=== PATIENT | female | born 1970 | race Caucasian/White ===

== ENCOUNTER 2020-10-19 10:09 | Outpatient (CLI) | payer BC, SELFPAY ==
--- NOTE | 2020-10-19 10:14 | MM_ITS ---
WS: [id number] BILATERAL SCREENING DIGITAL MAMMOGRAM WITH CAD HISTORY: SCREENING COMPARISON: 10/19/2016 and 03/31/2010 Bilateral CC and MLO views submitted. Computer aided detection analyzed. Breast composition: There are scattered areas of fibroglandular density. No suspicious masses, microc alcifications or architectural distortion. Benign calcification medial LEFT breast. MM/[place] [id number] IMPRESSION: BI-RADS: 2-Benign FOLLOW UP: 1 Year Follow-up
== END 2020-10-19 10:10 | disposition home or self-care (01) ==
LOC: RADSHAW 10:12
PROVIDERS: PCP Family Medicine; Visit Provider Family Medicine
DX: Z12.31 Encounter for screening mammogram for malignant neoplasm of breast (principal)
CPT/HCPCS: 77067

== ENCOUNTER → 2022-06-13 11:14 | Outpatient (BNVA) | payer OTHER, SELFPAY | PROVIDERS: PCP Family Medicine; Visit Provider Family Medicine | DX: E11.9 Type 2 diabetes mellitus without complications (principal); Z51.81 Encounter for therapeutic drug level monitoring; B35.4 Tinea corporis; I10 Essential (primary) hypertension; R09.81 Nasal congestion; R61 Generalized hyperhidrosis | CPT/HCPCS: 80053; 83036 ==

== ENCOUNTER → 2022-08-17 10:42 | Outpatient (BNVA) | payer OTHER, SELFPAY | PROVIDERS: PCP Family Medicine; Referring Provider Family Medicine; Visit Provider Internal Medicine Rheumatology | DX: Z79.899 Other long term (current) drug therapy (principal); L40.50 Arthropathic psoriasis, unspecified; Z11.59 Encounter for screening for other viral diseases; E11.9 Type 2 diabetes mellitus without complications; M77.32 Calcaneal spur, left foot; M77.31 Calcaneal spur, right foot | CPT/HCPCS: 36415; 73130; 73630; 82306; 85025; 85651; 86140; 86200; 86431; 86480; 86704; 86803; 87340 ==

== ENCOUNTER → 2023-03-07 15:59 | Outpatient (BNVA) | payer OTHER, SELFPAY | PROVIDERS: PCP Family Medicine; Visit Provider Internal Medicine Rheumatology | DX: L40.50 Arthropathic psoriasis, unspecified (principal); Z79.899 Other long term (current) drug therapy | CPT/HCPCS: 36415; 80076; 82565; 85025; 86140 ==

== ENCOUNTER → 2023-04-18 10:42 | Outpatient (BNVA) | payer OTHER, SELFPAY | PROVIDERS: PCP Family Medicine; Visit Provider Family Medicine | DX: E11.9 Type 2 diabetes mellitus without complications (principal); J32.9 Chronic sinusitis, unspecified; H57.89 Other specified disorders of eye and adnexa; Z79.899 Other long term (current) drug therapy; I10 Essential (primary) hypertension | CPT/HCPCS: 83036 ==

== ENCOUNTER → 2023-06-21 11:56 | Outpatient (BNVA) | payer OTHER, SELFPAY | PROVIDERS: PCP Family Medicine; Visit Provider Internal Medicine Rheumatology | DX: Z79.899 Other long term (current) drug therapy (principal); L40.50 Arthropathic psoriasis, unspecified | CPT/HCPCS: 36415; 80076; 82565; 85025; 86140 ==

== ENCOUNTER 2023-10-27 13:26 | Outpatient (CLI) | payer OTHER, SELFPAY ==
--- NOTE | 2023-10-27 13:38 | MM_ITS ---
WS: [id number] BILATERAL 3D TOMOSYNTHESIS DIGITAL SCREENING MAMMOGRAPHY WITH CAD CLINICAL INFORMATION: Z12.39 - Encounter for other screening for malignant neop... HISTORY: Screening mammogram. No current complaints. COMPARISON: 2020 TECHNIQUE: Bilateral CC and MLO views. FINDINGS: Scattered fibroglandular densities bilaterally. No suspicious focal mass, asymmetry, calcifications, or architectural distortion. No evidence of malignancy. Lucent centered calcification LEFT breast. IMPRESSION: MM/[place] [id number] BI-RADS: 2-Benign FOLLOW UP: 1 Year Follow-up Recommend return to annual screening mammography.
== END 2023-10-27 13:27 | disposition home or self-care (01) ==
LOC: RAD 13:27
PROVIDERS: PCP Family Medicine; Visit Provider Family Medicine
DX: Z12.31 Encounter for screening mammogram for malignant neoplasm of breast (principal)
CPT/HCPCS: 77063; 77067

== ENCOUNTER → 2024-01-08 15:47 | Outpatient (BNVA) | payer OTHER, SELFPAY | PROVIDERS: PCP Family Medicine; Visit Provider Internal Medicine Rheumatology | DX: E11.9 Type 2 diabetes mellitus without complications (principal); L40.50 Arthropathic psoriasis, unspecified; Z79.899 Other long term (current) drug therapy | CPT/HCPCS: 36415; 80076; 82565; 83036; 85025; 86140 ==

== ENCOUNTER 2024-03-11 15:06 | Outpatient (CLI) | payer OTHER, SELFPAY ==
--- NOTE | 2024-03-11 15:09 | XR_ITS ---
WS: [id number] CHEST 2 VIEWS HISTORY: Cough COMPARISON: None available. Lungs: Moderate elevation of the RIGHT diaphragm. No mass identified. The LEFT lung is clear. Cardiac size: Normal. Mediastinum/Aorta: Normal mediastinum. Bones: Normal. Prior cholecystectomy. IMPRESSION: 1. Moderate elevation of the RIGHT hemidiaphragm. No prior studies for comparison to evaluate for ch ronicity or acuteness. 2. No pneumonia.
== END 2024-03-11 15:07 | disposition home or self-care (01) ==
LOC: RAD 15:07
PROVIDERS: PCP Family Medicine; Visit Provider Family Medicine
DX: J42 Unspecified chronic bronchitis (principal)
CPT/HCPCS: 71046

== ENCOUNTER 2024-04-01 16:14 | Outpatient (CLI) | payer OTHER, SELFPAY ==
[2024-04-01] MEDS: iohexol 300 mg/mL 100 mL Btl IV (16:37)
--- NOTE | 2024-04-01 17:00 | CT_ITS ---
WS: [id number] CT chest w con* [id number] HISTORY: Right hemidiaphragm elevation, chronic cough, voice changes TECHNIQUE: Axial imaging performed through the thorax. Coronal and sagittal reformats are submitted. All CT scans at [facility] use at least one of these dose optimization techniques: automated exposure control; mA and/or kV adjustment per patient size (includes targeted exams where dose is mat ched to clinical indication); or iterative reconstruction. CONTRAST: Omnipaque 350; 100 mL IV. DLP: 648.96 mGy.cm COMPARISON: Chest radiograph 03/11/2024 Lungs and central airway: Moderate elevation of the RIGHT hemidiaphragm is reidentified. There is no atelectasis identified. No pneumonia in the RIGHT lower lobe. No endobronchial lesions identified rel ated to the elevated diaphragm. This is a chronic finding. There is several small micronodules scatte red throughout the lungs. There is a less than 3 mm. No mass. No pneumonia. Pleura: Normal. No pleural effusion. Heart and pericardium: Normal size heart with no pericardial effusion. Mediastinum and simran: No adenopathy. Subcentimeter RIGHT hilar lymph node is 9 mm. Vessels: Normal size aortic and pulmonary artery. No coronary artery calcifications. Chest wall and lower neck: No soft tissue masses. Upper abdomen: Hepatic steatosis. Prior cholecystectomy. No adrenal mass. Osseous structures: No destructive process. CT/CT chest w con* [id number] IMPRESSION: 1. Moderate elevation of the RIGHT hemidiaphragm of unknown etiology. 2. There is no atelectasis or pneumonia. 3. Small pulmonary micronodules. No follow-up necessary. 4. Hepatic steatosis and prior cholecystectomy.
== END 2024-04-01 16:15 | disposition home or self-care (01) ==
LOC: RAD 16:14
PROVIDERS: PCP Family Medicine; Visit Provider Family Medicine
DX: J98.6 Disorders of diaphragm (principal); R91.8 Other nonspecific abnormal finding of lung field; K76.0 Fatty (change of) liver, not elsewhere classified
CPT/HCPCS: 71260; Q9967

== ENCOUNTER 2024-05-17 17:03 | Emergency (ER) | payer OTHER, SELFPAY ==
[2024-05-17 17:05] VITALS: BP 124/76; PULSE 94; RESP 16; TEMP 36.6; O2SAT 95
--- NOTE | 2024-05-17 17:17 | USR_ITS ---
PROCEDURE INFORMATION: Exam: US Duplex Left Lower Extremity Veins, Limited Exam date and time: 05/17/2024 6:04 PM Age: 53 years old Clinical indication: Pain; Leg, lower; Left; Additional info: Leg pain swelling TECHNIQUE: Imaging protocol: Real-time duplex ultrasound of the left extremity with 2-D doll scale, color Doppler flow and spectral waveform analysis including responses to compression and other maneuvers (when performed) with image documentation. Limited exam focused on the left lower extremity veins. COMPARISON: CR XR foot LT min 3V* [id number] 08/17/2022 10:43 AM FINDINGS: Left deep veins: Unremarkable. The common femoral, femoral, proximal profunda femoral and popliteal veins are patent without thrombus. Normal Doppler waveforms. Normal compressibility and/or augmentation response. Peroneal and posterior tibial veins of the calf appear unremarkable, as well. Superficial veins: Greater saphenous vein at the saphenofemoral junction is patent without thrombus. Soft tissues: Unremarkable. US/[place] [id number] IMPRESSION: No evidence of deep vein thrombosis.
--- NOTE | 2024-05-17 17:35 | ED_ITS ---
Documented by User: Daniel Sanchez DO 05/18/24 05:46 HPI - Extremity Problem 2 General: Chief complaint: Extremity Problem,Nontraumatic Stated complaint: sent from [facility], left leg pain Time Seen by Provider: 05/17/24 17:17 Source: patient Mode of arrival: ambulatory History of Present Illness: 53-year-old female presents emergency ro om with direction from outpatient primary care clinic. She recently done some long car trip she is complaining some left calf pain and discomfort she has had cramping there no history of DVT she is not on any anticoagulants no chest pain no shortness of breath Associated symptoms: Deny chest pain, fever(s) or rash Review of Systems 2 Const: Denies: fever(s) or chills Card: Reports: edema and swelling of feet/ankles; Denies: chest pain, palpitations, irregular heart rhythm, dyspnea on exertion or orthopnea Resp: Denies: dyspnea GI: Denies: abdominal pain : Denies: dysuria, urinary frequency or urinary urgency Musc: Denies: neck pain or back pain Skin/Breast: Denies: rash PFSH ED 2 PFSH: Medical History Immunization counseling High risk medication use Diabetes Surgical History History of tonsillectomy H/O hernia repair History of cholecystectomy Hx of appendectomy History of hysterectomy Family History Mother CLL (chronic lymphocytic leukemia) Diabetes Brother Cancer CLL Other CAD (coronary artery disease) Family history of premature coronary artery disease Hyperlipidemia Hypertension Psoriasis Stroke Denies family history of Rheumatoid arthritis Lupus Lung disease Social History Smoking and tobacco/nicotine status: never used tobacco/nicotine Quit status (tobacco/nicotine): has quit using Former quit date comment: 7 pack year history Physical Exam 2 Const: GENERAL APPEARANCE: cooperative and comfortable O RIENTATION/CONSCIOUSNESS: Yes awake, Yes oriented to person, Yes oriented to place and Yes oriented to time HENMT: COMMON NORMALS: normocephalic, atraumatic and hearing grossly normal bilaterally HEAD & SCALP: normocephalic and atraumatic Resp: COMMON NORMALS: normal respiratory effort, No retractions, No use of accessory muscles and clear to auscultation bilaterally AUSCULTATION: clear to auscultation bilaterally Cardio: COMMON NORMALS: regular rate, regular rhythm and No murmurs present (Cardio) RATE: regular rate RHYTHM: regular rhythm GI: COMMON NORMALS: Soft to palpation and No hepatosplenomegaly present A USCULTATION: Yes normoactive bowel sounds PALPATION: Yes Soft to palpation, No Tenderness to palpation present (GI), No Guarding due to palpation present (GI) and Yes No hepatosplenomegaly present Extremity: COMMON NORMALS: normal to inspection and capillary refill normal OTHER: Moderate swelling left lower leg with positive Homans Neuro: SENSORIUM/ORIENTATION: Yes oriented to person, Yes oriented to place and Yes oriented to time Skin: COMMON NORMALS: no rashes or lesions noted GENERAL SKIN EXAM: no rashes or lesions noted Course 2 Vital Signs: Vital signs: Vital Signs Temperature 97.9 F 05/17/24 17:05 Pulse Rate 94 05/17/24 17:05 Respiratory Rate 16 05/17/24 17:05 Blood Pressure 106/70 05/17/24 18:42 Pulse Oximetry 97 05/17/24 18:42 Oxygen Delivery Me thod Room Air 05/17/24 17:05 MDM - Extremity (Nontraumatic) Lab Data 05/17/24 17:33 05/17/24 17:33 Radiology Impressions Venous Duplex 05/17/24 17:17 IMPRESSION: No evidence of deep vein thrombosis. Laboratory Results WBC 8.57 10^3/uL (3.29-11.43) 05/17/24 17:33 RBC 4.55 10^6/uL (3.85-5.65) 05/17/24 17:33 Hgb 13.30 g/dL (11.27-16.99) 05/17/24 17:33 Hct 42.4 % (36-47) 05/17/24 17:33 MCV 93.2 fl (85-98) 05/17/24 17:33 MCH 29.2 pg (27-33) 05/17/24 17:33 MCHC 31.4 g/dL (30-55) 05/17/24 17:33 RDW 12.7 % (12.1-15.1) 05/17/24 17:33 Plt Count 253 10^3/cmm (157-399) 05/17/24 17:33 MPV 9.2 fL (7.4-10.4) 05/17/24 17:33 Neut % (Auto) 53.3 % 05/17/24 17:33 Lymph % (Auto) 32.9 % 05/17/24 17:33 [place] % (Auto) 8.4 % 05/17/24 17:33 Eos % (Auto) 4.6 % 05/17/24 17:33 Baso % (Auto) 0.6 % 05/17/24 17:33 Neut # (Auto) 4.57 10^3/uL (1.8-7.7) 05/17/24 17:33 Lymph # (Auto) 2.8 10^3/uL (0.8-4.8) 05/17/24 17:33 [place] # (Auto) 0.7 10^3/uL (0.2-0.9) 05/17/24 17:33 Eos # (Auto) 0.4 10^3/uL (0.0-0.8) 05/17/24 17:33 Baso # (Auto) 0.1 10^3/uL (0.0-0.1) 05/17/24 17:33 Nucleated RBC % (auto) 0 % 05/17/24 17:33 Nucleated RBCs # 0.0 /100WBC 05/17/24 17:33 Sodium 141 mmol/L (136-145) 05/17/24 17:33 Potassium 4.3 mmol/L (3.5-5.1) 05/17/24 17:33 Chloride 104 mmol/L (98-107) 05/17/24 17:33 Carbon Dioxide 25 mmol/L (22-29) 05/17/24 17:33 Anion Gap 16.3 (5-19) 05/17/24 17:33 BUN 12 mg/dL (6-20) 05/17/24 17:33 Creatinine 0.7 mg/dL (0.5-0.9) 05/17/24 17:33 GFR Calculation 87.5 mL/min (90-130) L 05/17/24 17:33 Glucose 100 mg/dL (65-115) 05/17/24 17:33 Calculated Osmolality 292 mOsm/kg (285-295) 05/17/24 17:33 Calcium 9.6 mg/dL (8.5-10.5) 05/17/24 17:33 Total Bilirubin 1.1 mg/dL (0.15-1.2) 05/17/24 17:33 AST 24 U/L (0-32) 05/17/24 17:33 ALT 29 U/L (0-33) 05/17/24 17:33 Alkaline Phosphatase 64 U/L (35-105) 05/17/24 17:33 Total Protein 7.4 g/dL (6.6-8.7) 05/17/24 17:33 Albumin 4.5 g/dL (3.5-5.2) 05/17/24 17:33 Globulin 2.9 g/dL (1.3-4.6) 05/17/24 17:33 Discharge Plan Discharge Patient Disposition: Home Clinical Impression: Leg pain Condition: Stable Prescriptions: No Action clobetasol 0.05 % cream 1 applic topical BID 14 Days Qty: 45 1RF Yusimry(CF) Pen 40 mg/0.8 mL pen injector 40 mg SUBCUT Q14D Qty: 1.6 5RF albuterol sulfate [ProAir HFA] 90 mcg/actuation HFA aerosol inhaler 2 puff inhalation Q6H PRN (Reason: shortness of breath or wheezing) Qty: 8.5 6RF cetirizine [Zyrtec] 10 mg tablet 10 mg PO DAILY PRN (Reason: allergy symptoms) Qty: 30 0RF budesonide-formoterol [Symbicort] 80-4.5 mcg/actuation HFA aerosol inhaler 2 puff inhalation BID Qty: 10.2 3RF Trulicity 1.5 mg/0.5 mL pen injector 1.5 mg SUBCUT .Once a week Qty: 6 6RF Hold Instructions: trying Ozempic valsartan 80 mg tablet 80 mg PO DAILY Qty: 90 3RF simvastatin 10 mg tablet 10 mg PO DAILY Qty: 90 3RF metformin 500 mg tablet See Rx Instructions .ROUTE .COMPLEX Qty: 180 3RF Hold Instructions: Diarrhea Dose Instruction: Take 1 tablet by mouth twice daily Rx Instructions: Take 1/2 tablet by mouth twice daily Discharge Orders: Discharge ED (Routine); Ordered 05/17/24 Ordered By: Milka Boggs Referrals: Hermilo Bone MD [Primary Care Provider] - 4-7 days Discharge Diet: Advance as tolerated Discharge Activity: Resume usual activity Patient Instructions: Leg Pain (ED) Coding Level of Care Code ED Practice Support Specialist for Chg Fwd Documented by User: Milka Boggs MD 05/17/24 18:24 HPI - Extremity Problem 2 General: Chief complaint: Extremity Problem,Nontraumatic Stated complaint: sent from [facility], left leg pain Time Seen by Provider: 05/17/24 17:17 PFSH ED 2 PFSH: Medical History Immunization counseling High risk medication use Diabetes Surgical History History of tonsillectomy H/O hernia repair History of cholecystectomy Hx of appendectomy History of hysterectomy Family History Mother CLL (chronic lymphocytic leukemia) Diabetes Brother Cancer CLL Other CAD (coronary artery disease) Family history of premature coronary artery disease Hyperlipidemia Hypertension Psoriasis Stroke Denies family history of Rheumatoid arthritis Lupus Lung disease Social History Smoking and tobacco/nicotine status: never used tobacco/nicotine Quit status (tobacco/nicotine): has quit using Former quit date comment: 7 pack year history Course 2 Vital Signs: Vital signs: Vital Signs Temperature 97.9 F 05/17/24 17:05 Pulse Rate 94 05/17/24 17:05 Respiratory Rate 16 05/17/24 17:05 Blood Pressure 106/70 05/17/24 18:42 Pulse Oximetry 97 05/17/24 18:42 Oxygen Delivery Me thod Room Air 05/17/24 17:05 MDM - Extremity (Nontraumatic) Medical Decision Making Patient presents with leg pain ultrasound showed no DVT blood work here are normal she is well-appearing here she stable for discharge follow-up with PCP return if worsening. Medical Records I reviewed the patient's medical records. Lab Data I reviewed the patient's lab results. 05/17/24 17:33 05/17/24 17:33 Radiology Impressions Venous Duplex 05/17/24 17:17 IMPRESSION: No evidence of deep vein thrombosis. Laboratory Results WBC 8.57 10^3/uL (3.29-11.43) 05/17/24 17:33 RBC 4.55 10^6/uL (3.85-5.65) 05/17/24 17:33 Hgb 13.30 g/dL (11.27-16.99) 05/17/24 17:33 Hct 42.4 % (36-47) 05/17/24 17:33 MCV 93.2 fl (85-98) 05/17/24 17:33 MCH 29.2 pg (27-33) 05/17/24 17:33 MCHC 31.4 g/dL (30-55) 05/17/24 17:33 RDW 12.7 % (12.1-15.1) 05/17/24 17:33 Plt Count 253 10^3/cmm (157-399) 05/17/24 17:33 MPV 9.2 fL (7.4-10.4) 05/17/24 17:33 Neut % (Auto) 53.3 % 05/17/24 17:33 Lymph % (Auto) 32.9 % 05/17/24 17:33 [place] % (Auto) 8.4 % 05/17/24 17:33 Eos % (Auto) 4.6 % 05/17/24 17:33 Baso % (Auto) 0.6 % 05/17/24 17:33 Neut # (Auto) 4.57 10^3/uL (1.8-7.7) 05/17/24 17:33 Lymph # (Auto) 2.8 10^3/uL (0.8-4.8) 05/17/24 17:33 [place] # (Auto) 0.7 10^3/uL (0.2-0.9) 05/17/24 17:33 Eos # (Auto) 0.4 10^3/uL (0.0-0.8) 05/17/24 17:33 Baso # (Auto) 0.1 10^3/uL (0.0-0.1) 05/17/24 17:33 Nucleated RBC % (auto) 0 % 05/17/24 17:33 Nucleated RBCs # 0.0 /100WBC 05/17/24 17:33 Sodium 141 mmol/L (136-145) 05/17/24 17:33 Potassium 4.3 mmol/L (3.5-5.1) 05/17/24 17:33 Chloride 104 mmol/L (98-107) 05/17/24 17:33 Carbon Dioxide 25 mmol/L (22-29) 05/17/24 17:33 Anion Gap 16.3 (5-19) 05/17/24 17:33 BUN 12 mg/dL (6-20) 05/17/24 17:33 Creatinine 0.7 mg/dL (0.5-0.9) 05/17/24 17:33 GFR Calculation 87.5 mL/min (90-130) L 05/17/24 17:33 Glucose 100 mg/dL (65-115) 05/17/24 17:33 Calculated Osmolality 292 mOsm/kg (285-295) 05/17/24 17:33 Calcium 9.6 mg/dL (8.5-10.5) 05/17/24 17:33 Total Bilirubin 1.1 mg/dL (0.15-1.2) 05/17/24 17:33 AST 24 U/L (0-32) 05/17/24 17:33 ALT 29 U/L (0-33) 05/17/24 17:33 Alkaline Phosphatase 64 U/L (35-105) 05/17/24 17:33 Total Protein 7.4 g/dL (6.6-8.7) 05/17/24 17:33 Albumin 4.5 g/dL (3.5-5.2) 05/17/24 17:33 Globulin 2.9 g/dL (1.3-4.6) 05/17/24 17:33 All radiology interpretation(s) finalized by discharge Discharge Plan Discharge Patient Disposition: Home Clinical Impression: Leg pain Condition: Stable Prescriptions: No Action clobetasol 0.05 % cream 1 applic topical BID 14 Days Qty: 45 1RF Yusimry(CF) Pen 40 mg/0.8 mL pen injector 40 mg SUBCUT Q14D Qty: 1.6 5RF albuterol sulfate [ProAir HFA] 90 mcg/actuation HFA aerosol inhaler 2 puff inhalation Q6H PRN (Reason: shortness of breath or wheezing) Qty: 8.5 6RF cetirizine [Zyrtec] 10 mg tablet 10 mg PO DAILY PRN (Reason: allergy symptoms) Qty: 30 0RF budesonide-formoterol [Symbicort] 80-4.5 mcg/actuation HFA aerosol inhaler 2 puff inhalation BID Qty: 10.2 3RF Trulicity 1.5 mg/0.5 mL pen injector 1.5 mg SUBCUT .Once a week Qty: 6 6RF Hold Instructions: trying Ozempic valsartan 80 mg tablet 80 mg PO DAILY Qty: 90 3RF simvastatin 10 mg tablet 10 mg PO DAILY Qty: 90 3RF metformin 500 mg tablet See Rx Instructions .ROUTE .COMPLEX Qty: 180 3RF Hold Instructions: Diarrhea Dose Instruction: Take 1 tablet by mouth twice daily Rx Instructions: Take 1/2 tablet by mouth twice daily Discharge Orders: Discharge ED (Routine); Ordered 05/17/24 Ordered By: Milka Boggs Referrals: Hermilo Bone MD [Primary Care Provider] - 4-7 days Discharge Diet: Advance as tolerated Discharge Activity: Resume usual activity Patient Instructions: Leg Pain (ED) Coding Level of Care Code ED Practice Support Specialist for Keaton Bolaños
[2024-05-17 17:41] LABS: Basophils # 0.1 10^3/uL (0.0-0.1); Basophils % 0.6 %; Eosinophils # 0.4 10^3/uL (0.0-0.8); Eosinophils % 4.6 %; Hematocrit 42.4 % (36-47); Lymphocytes # 2.8 10^3/uL (0.8-4.8); Lymphocytes % 32.9 %; Mean Corpuscular HGB Conc 31.4 g/dL (30-55); Mean Corpuscular Hemoglobin 29.2 pg (27-33); Mean Corpuscular Volume 93.2 fl (85-98); Mean Platelet Volume 9.2 fL (7.4-10.4); Monocytes # 0.7 10^3/uL (0.2-0.9); Monocytes % 8.4 %; Neutrophils # 4.57 10^3/uL (1.8-7.7); Neutrophils % 53.3 %; Nucleated Red Blood Cells % 0 %; Platelet Count 253 10^3/cmm (157-399); Red Blood Count 4.55 10^6/uL (3.85-5.65); Red Cell Distribution Width 12.7 % (12.1-15.1); White Blood Count 8.57 10^3/uL (3.29-11.43)
[2024-05-17 17:57] VITALS: BP 106/70; O2SAT 97
[2024-05-17 17:58] LABS: Alanine Aminotransferase 29 U/L (0-33); Albumin Level 4.5 g/dL (3.5-5.2); Alkaline Phosphatase 64 U/L (35-105); Anion Gap 16.3 (5-19); Aspartate Amino Transferase 24 U/L (0-32); Blood Urea Nitrogen 12 mg/dL (6-20); Calcium 9.6 mg/dL (8.5-10.5); Carbon Dioxide 25 mmol/L (22-29); Chloride 104 mmol/L (98-107); Creatinine Clr Calc Pharmacy 119.8806; Globulin 2.9 g/dL (1.3-4.6); Glomerular Filtration Rate 87.5 mL/min (90-130); Glucose 100 mg/dL (65-115); Osmolality Calculated 292 mOsm/kg (285-295); Potassium 4.3 mmol/L (3.5-5.1); Sodium 141 mmol/L (136-145); Total Bilirubin 1.1 mg/dL (0.15-1.2); Total Protein 7.4 g/dL (6.6-8.7)
[2024-05-17 18:42] VITALS: BP 106/70; O2SAT 97
== END 2024-05-17 18:42 | disposition home or self-care (01) ==
PROVIDERS: Family Medicine; Emergency Provider Emergency Medicine; PCP Family Medicine
DX: M79.662 Pain in left lower leg (principal); Z79.85 Long-term (current) use of injectable non-insulin antidiabetic drugs; Z79.84 Long term (current) use of oral hypoglycemic drugs; Z87.891 Personal history of nicotine dependence; E11.9 Type 2 diabetes mellitus without complications
CPT/HCPCS: 36415; 80053; 85025; 93971; 99284

== ENCOUNTER → 2025-05-13 07:51 | Outpatient (BNVA) | payer OTHER, SELFPAY | PROVIDERS: PCP Family Medicine; Visit Provider Family Medicine | DX: Z00.00 Encounter for general adult medical examination without abnormal findings (principal); E53.8 Deficiency of other specified B group vitamins; Z51.81 Encounter for therapeutic drug level monitoring; E11.9 Type 2 diabetes mellitus without complications; Z13.6 Encounter for screening for cardiovascular disorders | CPT/HCPCS: 80053; 80061; 82607; 83036; 85025 ==

== ENCOUNTER 2025-09-07 17:26 | Emergency (ER) | payer OTHER, SELFPAY ==
--- NOTE | 2025-09-07 17:26 | XRR_ITS ---
PROCEDURE INFORMATION: Exam: XR Chest Exam date and time: 09/07/2025 5:47 PM Age: 55 years old Clinical indication: Pain; Chest pressure; Additional info: Cp TECHNIQUE: Imaging protocol: Radiologic exam of the chest. Views: 1 view. COMPARISON: CT chest w con* [id number] 04/01/2024 4:28 PM FINDINGS: Lungs: Unremarkable. No consolidation. Pleural spaces: Unremarkable. No pleural effusion. No pneumothorax. Heart/Mediastinum: Unremarkable. No cardiomegaly. Diaphragm: Elevation of right hemidiaphragm. Bones/joints: Unremarkable. XR/XR chest 1V portable [id number] IMPRESSION: 1. No acute cardiopulmonary findings. 2. Persistent elevation of right hemidiaphragm.
--- NOTE | 2025-09-07 17:26 | ECG_ITS ---
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 Measurements Intervals [place] Rate: 76 P: 43 OH: 197 QRS: 48 QRSD: 87 T: 28 QT: 347 QTc: 391 Interpretive Statements SINUS RHYTHM No previous ECG available for comparison Electronically Signed On 09-09-2025 19:28:34 CDT by Cori Thompson M.D. [email or web address] [email or web address] In Entertainmentthe [facility]health system.[employer]/store/NU/[id number]/[id number]
[2025-09-07 17:28] VITALS: BP 138/84; PULSE 85; RESP 16; TEMP 36.5; O2SAT 98; BMI 31.9
--- NOTE | 2025-09-07 17:31 | CTR_ITS ---
PROCEDURE INFORMATION: Exam: CT Abdomen And Pelvis With Contrast Exam date and time: 09/07/2025 5:55 PM Age: 55 years old Clinical indication: Abdominal pain; Prior surgery; Surgery date: 6+ months; Surgery type: Gb. Hernia repair. Appy. Hysterectomy. C/O epigastric pain; Additional info: Abd pain TECHNIQUE: Imaging protocol: Computed tomography of the abdomen and pelvis with contrast. Radiation optimization: All CT scans at this facility use at least one of these dose optimization techniques: automated exposure control; mA and/or kV adjustment per patient size (includes targeted exams where dose is matched to clinical indication); or iterative reconstruction. Contrast material: OMNI 350; Contrast volume: 100 ml; Contrast route: INTRAVENOUS (IV); COMPARISON: CT chest w con* [id number] 04/01/2024 4:28 PM RADIATION DOSE METRICS: Total DLP (mGy-cm): 1002.3 FINDINGS: Lungs: Few scattered pulmonary micronodules are present within partially included lung bases. Example includes 2 mm nodule within left lower lobe (3/). Diaphragm: Persistent moderate elevation of right hemidiaphragm. Liver: Hepatic steatosis. Gallbladder and biliary ducts: Status post cholecystectomy. Pancreas: Normal. No ductal dilation. Spleen: Normal. No splenomegaly. Adrenal glands: Normal. No mass. Kidneys and ureters: No obstructing calculi. No hydronephrosis bilaterally. Stomach and bowel: No small bowel obstruction. Multiple fluid-filled loops of nondilated small bowel. Moderate colonic stool burden. Appendix: No evidence of appendicitis. Intraperitoneal space: Unremarkable. No free air. No significant fluid collection. Vasculature: Multiple punctate hyperdensities within the pelvis, likely represent phleboliths. Lymph nodes: Unremarkable. No enlarged lymph nodes. Urinary bladder: Circumferential bladder wall thickening. Reproductive: Hysterectomy. Bones/joints: Unremarkable. No acute fracture. Soft tissues: Unremarkable. CT/CT abdomen pelvis w con* [id number] IMPRESSION: 1. Bladder wall thickening. Correlate with urinalysis to exclude cystitis. 2. Few fluid-filled loops of small bowel, nonspecific finding but may be seen with enteritis of infectious or inflammatory etiology. No small bowel obstruction. 3. Hepatic steatosis. Status post cholecystectomy. 4. Pulmonary micronodules within partially included lung bases.For patients at low risk (minimal or absent history of smoking and of other known risk factors), no routine follow-up is indicated. For patients at high risk (history of smoking or of other known risk factors), consider optional CT Chest at 12 months. (Reference: Damaris) REFERENCES: Damaris Sanchez, et al. Guidelines for Management of Incidental Pulmonary Nodules Detected on CT Images: From the Fleischner Society 2017. Radiology. 2017;284(1):228-243.
--- OUTSIDE RECORDS SUMMARY | 2025-09-07 17:31 | XMS_ITS | Clinical Summary ---
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
--- OUTSIDE RECORDS SUMMARY | 2025-09-07 17:31 | XMS_ITS | Encounter Summary ---
Author Organization [facility] Address [address] [place] [address] Care Team Providers Care Civil Engineer'S Aide Name Role Phone Unavailable Primary Care Provider Unavailabl e Encounter Details Date Type Department Care Team (Latest Contact Info) Description 02/20/2003 Outpatient Historical [facility] Rheumatology- [facility] [place] [address] [place] [address] Efrain Bailon MD NO ADDRESS ON FILE PSORIATIC ARTHROPATHY (CMS/HCC) (Primary Dx); AFTERCARE [facility] USE MEDICATN Social History Tobacco Use Types Packs/Day Years Used Date Smoking Tobacco: Never Assessed Comments Unknown Sex and Gender Information Value Date Recorded Sex Assigned at Not on file 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
--- OUTSIDE RECORDS SUMMARY | 2025-09-07 17:31 | XMS_ITS | Encounter Summary ---
Author Organization [facility] Address [address] [place] [address] Care Team Providers Care Supervisor Pastry Name Role Phone Unavailable Primary Care Provider Unavailabl e Encounter Details Date Type Department Care Team (Latest Contact Info) Description 07/17/[address] 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
--- OUTSIDE RECORDS SUMMARY | 2025-09-07 17:32 | XMS_ITS | Encounter Summary ---
Author Organization [facility] Address [address] [place] [address] Care Team Providers Care Roll On Worker Name Role Phone Unavailable Primary Care Provider Unavailabl e Encounter Details Date Type Department Care Team (Latest Contact Info) Description 06/10/2002 Outpatient Historical [facility] Rheumatology- [facility] [place] [address] [place] [address] Efrain Bailon MD NO ADDRESS ON FILE PSORIATIC ARTHROPATHY (CMS/HCC) (Primary Dx); AFTERCARE SHELTER USE MEDICATN Social History Tobacco Use Types Packs/Day Years Used Date Smoking Tobacco: Never Assessed Comments Unknown Sex and Gender Information Value Date Recorded Sex Assigned at Not on file 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
--- OUTSIDE RECORDS SUMMARY | 2025-09-07 17:32 | XMS_ITS | Encounter Summary ---
Author Organization [facility] Address [address] [place] [address] Care Team Providers Care Concession Stand Attendant Name Role Phone Unavailable Primary Care Provider Unavailabl e Encounter Details Date Type Department Care Team (Latest Contact Info) Description 04/19/2002 Outpatient Historical [facility] Rheumatology- [facility] [place] [address] [place] [address] Efrain Bailon MD NO ADDRESS ON FILE PSORIATIC ARTHROPATHY (CMS/HCC) (Primary Dx) Social History Tobacco Use Types Packs/Day Years Used Date Smoking Tobacco: Never Assessed Comments Unknown Sex and Gender Information Value Date Recorded Sex Assigned at Not on file 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
--- OUTSIDE RECORDS SUMMARY | 2025-09-07 17:32 | XMS_ITS | Encounter Summary ---
Author Organization [facility] Address [address] [place] [address] Care Team Providers Care Concrete Journeyman Name Role Phone Unavailable Primary Care Provider Unavailabl e Encounter Details Date Type Department Care Team (Latest Contact Info) Description 07/23/2002 Outpatient Historical [facility] Rheumatology- [facility] [place] [address] [place] [address] Efrain Bailon MD NO ADDRESS ON FILE PSORIATIC ARTHROPATHY (CMS/HCC) (Primary Dx); AFTERCARE SENIOR LIVING USE MEDICATN Social History Tobacco Use Types Packs/Day Years Used Date Smoking Tobacco: Never Assessed Comments Unknown Sex and Gender Information Value Date Recorded Sex Assigned at Not on file 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
--- OUTSIDE RECORDS SUMMARY | 2025-09-07 17:32 | XMS_ITS | Encounter Summary ---
Author Organization [facility] Address [address] [place] [address] Care Team Providers Care Sales Account Leader Name Role Phone Unavailable Primary Care Provider Unavailabl e Encounter Details Date Type Department Care Team (Late st Contact Info) Description 06/22/1998 Outpatient Historical [facility] Ear, Nose and Throat [address] [address] 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
--- OUTSIDE RECORDS SUMMARY | 2025-09-07 17:32 | XMS_ITS | Clinical Summary ---
Author Organization [employer] Address [address] [place]: Epic Prelude ADT [place] [address] Care Team Providers Care Social Service Liaison Name Role Phone Unavailable Primary Care Provider Unavailabl e Allergies Active Allergy Reactions Criticality Noted Date Comments Penicillins Rash Low 11/21/2024 Medications metFORMIN (GLUCOPHAGE) 500 mg tablet Take 500 mg by mouth 2 times daily with meals. Active VALSARTAN ORAL Take by mouth. Active semaglutide (Ozempic) 0.25 mg or 0.5 mg(2 mg/1.5 mL) Pen Injector Inject by subcutaneous injection. Active cetirizine (ZyrTEC) 10 mg tablet Take 10 mg by mouth daily. Active omeprazole (PriLOSEC) 40 mg Capsule, Delayed Release(E.C.) Take 1 Capsule (40 mg) by mouth daily. 30 Capsule 3 Active Active Problems No known active problems Encounters Date Type Department Care Team Description 06/24/2025 External Device Data STL ABSTRACTION Provider, Abstract from Last 3 Months Family History Medical History Relation Name Comments No Known Problems Father No Known Problems Mother Relation Name Status Comments Father Alive Mother Alive Social History Tobacco Use Types Packs/Day Years Used Date Smoking Tobacco: Former Cigarettes Tobacco Cessation:Counseling Given: Not Answered Comments Unknown Sex and Gender Information Value Date Recorded Sex Assigned at Not on file Legal Sex Female 5:36 AM UNDERWRITING CLERKS SUPERVISOR Gender Identity Not on file Sexual Orientation Not on file Last Filed Vital Signs Vital Sign Reading Time Taken Comments Blood Pressure 120/78 11/21/2024 1:07 PM UNDERWRITING CLERKS SUPERVISOR Pulse - - Temperature - - Respiratory Rate - - Oxygen Saturation - - Inhaled Oxygen Concentration - - Weight 104.3 kg (230 lb) 11/21/2024 1:07 PM UNDERWRITING CLERKS SUPERVISOR Height 152.4 cm (5') 11/21/2024 1:07 PM UNDERWRITING CLERKS SUPERVISOR Body Mass Index 44.92 11/21/2024 1:07 PM UNDERWRITING CLERKS SUPERVISOR Plan of Treatment Health Maintenance Due Date Last Done Comments Pre-Diabetes and Diabetes Screening 1970 DTAP/TDAP/TD VACCINES (1 - Tdap) 1989 HEPATITIS [...] of 2) 2020 INFLUENZA VACCINE (#1) 2025 Insurance [employer] [place] [employer] Member Subscriber Plan / Payer (Ef fective 2024-Present) Name:Rolando Jimenes Relation to Subscriber:Self Name:Rolando Jimenes Payer ID:Not on file Type:Direct [place] Address: [facility] [address] [id number]
--- OUTSIDE RECORDS SUMMARY | 2025-09-07 17:32 | XMS_ITS | Encounter Summary ---
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
--- OUTSIDE RECORDS SUMMARY | 2025-09-07 17:32 | XMS_ITS | Encounter Summary ---
Author Organization [facility] Address [address] [place] [address] Care Team Providers Care It Instructor Name Role Phone Unavailable Primary Care Provider Unavailabl e Encounter Details Date Type Department Care Team (Late st Contact Info) Description 06/10/1998 Outpatient Historical [facility] Ear, Nose and Throat [address] [place] 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
--- OUTSIDE RECORDS SUMMARY | 2025-09-07 17:32 | XMS_ITS | Encounter Summary ---
Author Organization [facility] Address [address] [place] [address] Care Team Providers Care Protective Services Social Worker Name Role Phone Unavailable Primary Care Provider Unavailabl e Encounter Details Date Type Department Care Team (Late st Contact Info) Description 01/31/2003 Outpatient Historical [facility] Social History Tobacco Use Types Packs/Day Years Used Date Smoking Tobacco: Never Assessed Comments Unknown Sex and Gender Information Value Date Recorded Sex Assigned at Not on file Legal Sex Female 3:47 AM PROGRAM SUPPORT SPECIALIST Gender Identity Not on file Sexual Orientation Not on file documented as of this encounter Plan of Treatment Not on file documented as of this encounter Visit Diagnoses Not on filedocumented in this encounter
--- OUTSIDE RECORDS SUMMARY | 2025-09-07 17:32 | XMS_ITS | Encounter Summary ---
Author Organization [facility] Address [address] [place] [address] Care Team Providers Care Digital Media Designer Name Role Phone Unavailable Primary Care Provider Unavailabl e Encounter Details Date Type Department Care Team (Latest Contact Info) Description 10/16/2002 Outpatient Historical [facility] Rheumatology- [facility] [place] [address] [place] [address] Efrain Bailon MD NO ADDRESS ON FILE PSORIATIC ARTHROPATHY (CMS/HCC) (Primary Dx); AFTERCARE DETENTION USE MEDICATN Social History Tobacco Use Types Packs/Day Years Used Date Smoking Tobacco: Never Assessed Comments Unknown Sex and Gender Information Value Date Recorded Sex Assigned at Not on file 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
--- OUTSIDE RECORDS SUMMARY | 2025-09-07 17:32 | XMS_ITS | Encounter Summary ---
Author Organization [facility] Address [address] [place] [address] Care Team Providers Care Music Education Director Name Role Phone Unavailable Primary Care Provider Unavailabl e Encounter Details Date Type Department Care Team (Late st Contact Info) Description 06/04/1998 Outpatient Historical [facility] Ear, Nose and Throat [address] [place] 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
--- OUTSIDE RECORDS SUMMARY | 2025-09-07 17:32 | XMS_ITS | Data Portability ---
Author Organization [facility]alloway [facility] Address [address] [address] Assessment No assessment recorded. Plan of Treatment Reminders Order Date Submit Date Provider Last Modified By Organization Details Last Modified Time Details Appointments None record ed. Lab None record ed. Referral None record ed. Procedures None record ed. Surgeries None record ed. Imaging None record ed. Medication Orders None record ed. Patient TargetsNo targets recorded. Patient Instructions Encounter Date Encounter Id Patient Instructions Last Modified By Organization Details Last Modified Time 05/17/2024 [id number] We discussed if she was concerned about DVT she needed to go to ER she needed to go get checked out at ER . She has some tenderness but no other sign. No was to know without a US. Patient agreed to go and will call ER [email or web address] Not available 05/18/2024 00:05:19 Reason for Referral None Reported. Problems Name Problem SNOMED Code Status Onset Date Resolution Date Notes Provider Name and Address Organization Details Recorded Time Appendectom y Active 2017 Appendec zia; 06/28/20 18 11:56AM by Sharmaine Whitt LPN, Office Visit; Promoted ; acuity set as *; Not Available [facility] 3 03:08:05 Depressive disorder 20191343 Active 2017 Depressi on; 06/28/20 18 11:56AM by Sharmaine Whitt LPN, Office Visit; Promoted ; acuity set as *; Not Available [facility] 3 03:08:05 Tonsillecto my Active 2017 Tonsille ctomy; 06/28/20 18 11:56AM by Sharmaine Whitt LPN, Office Visit; Promoted ; acuity set as *; Not Available [facility] 3 03:08:05 Hyperglycem ia 59934471 Active 2017 Hypergly cemia; 06/28/20 18 11:56AM by Sharmaine Whitt LPN, Office Visit; Promoted ; acuity set as *; Not Available [facility] 3 03:08:05 Chronic arthritis 95451185 Active 2017 Chronic Arthriti s; 06/28/20 18 11:56AM by Sharmaine Whitt LPN, Office Visit; Promoted ; acuity set as *; Not Available [facility] 3 03:08:05 Anxiety disorder 617392497 Active 2017 Anxiety Disorder ; 06/28/20 18 11:56AM by Sharmaine Whitt LPN, Office Visit; Promoted ; acuity set as *; Not Available [facility] 3 03:08:05 History of hysterectom y 207838480 Active 2017 Hysterec zia; Vaginal; 06/28/20 18 11:56AM by Sharmaine Whitt LPN, Office Visit; Promoted ; acuity set as *; Not Available [facility] 3 03:08:06 Problem Notes None recorded. Procedures Surgical History Date Name Laterality Status Provider Name and Address Organization Details Recorded Time [facility]/17/[facility] 17:34:20 [facility]end[facility] 05/17/2024 17:34:28 Cholecystectomy completed Cris [facility]ordynLJordynCJordyn 05/17/2024 17:34:39 Hysterectomy [facility] 05/17/2024 17:34:56 Hernia Repair [facility] 05/17/2024 17:35:08 Imaging Results None recorded. Procedure Notes None recorded. Medical Equipment None Reported. Allergies Allergen ID Allergen Name Allergen Category Reaction Reaction Severity Criticality Documentation Date Start Date Code Code System Note Provider Name and Address Organization Details Recorded Time 56075 Product containin g penicilli n (product) medicatio n Not available Not available Not available 06/17/2023 96562 [id number] SNOMED Comme nt: Recor ded 06/28 11:56 AM by Gracia miranda LPN, Offic e Visit ; Mirna conner; Yossi colby ce: *; ; Not Available [facility] 3 02:26:57 Medications Name Sig Start Date Stop Date Status Note LastModified by Organization Details LastModified Time valsartan active Not Available Not Debra ilable Not Available simvastat in active Not Available Not Available Not Available losartan 05/17 completed Not Available Not Available Not Available metformin daily active 0; Recorded 06/28/20 18 12:03PM by Sharmaine Whitt LPN, Office Visit; Not Available Not Available Not Available budesonid e-formote rol active Not Available Not Available Not Available Trulicity 1.5 mg/0.5 mL subcutane ous pen injector Inject by subcutan eous route. 05/17 completed Not Available Not Available Not Available Trulicity active Not Available Not Debra ilable Not Available Vitals Date Recorded Body height Body mass index (BMI) Body weight Oxygen saturation Oxygen saturation in Arterial blood by Pulse oximetry Heart rate Respiratory rate Body temperature Systolic And Diastolic Provider Name and Address Organization Details Last Updated DateTime 4 170.18 cm 36.8 kg/m2 171412. 49 g 96 % 96 % 80 /min 20 /min 96 [degF] 108/70 mm[Hg] Cris [facility] 4 17:28:45 Social History None recorded. Functional Status Question Answer Note LastModified by Organizat ion Details LastModified Time Do you use any illicit or recreational drugs? No [email or web address] Information not available 05/17/2024 What is your level of alcohol consumption? Occasional [email or web address] Information not available 05/17/2024 Mental Status None recorded. Family History Nothing Reported Notes:Neurology; Father, Lucille betes ; Mother, Brother, Paternal Aunt, Hypertension; Brother, Mother, Father, Tuberculosis; Father, ACUTE MYOCARDIAL INFARCTION; Mother Medical History No medical history recorded. Gynecological HistoryNo gynecological history recorded. Obstetrics History GPAL:G 0 P 0 0 0 0 Past Encounters Encounter ID Performer Location Encounter Start Date Encounter Closed Date Diagnosis/Indication Diagnosis SNOMED-CT Code Diagnosis ICD10 Code Diagnosis IMO Codes Diagnosis Note [id number] KRISTINA PRADO APRN [facility] [address] [place] [address] 05/17/2024 17:14:24 05/17/2024 17:56:48 Pain of left calf 1651048922 011296 M79.662 Health Concerns Section Related Observation LastModified by Organization Detai ls LastModified Time None Recorded Concern Status LastModified by Organization Details LastModified Time None Recorded Advance Directives Directive None Recorded Payers Insurance Date Sequence Insurance Name Policy Number Policy Ruff Covered Member ID Ruff Member ID Guarantor Name 05/17/2024 1 [employer] [facility] [id number] Tamatha L Gross [id number] Tamatha L Gross Notes Date Note Type Note Provider Name and Address Organization Details Recorded Time 05/17/2024 text/html Musculoskeletal PainReported by PatientHPIFor adls affected, patient reportswalking(painfu l). For location, (left lower leg). For severity, (dull ache with sharp pains with movement).She is concerned about DVTROS as noted in the HPI walk in patientPatient has been having saira horses in her legs on 05/09/24 that were gone by the next day. She had one in her left lower leg early this morning that is still hurting KRISTINA PRADO APRN [address] [place], [address], [facility] 05/18/2024 00:05:40 OBGyn Episode No OBEpisode recorded.
--- NOTE | 2025-09-07 17:37 | ED_ITS ---
HPI - Chest Pain 2 General: Chief Complaint: Chest Pain Stated Complaint: cp, into back, bilat arm pain Time Seen by Provider: 09/07/25 17:26 Source: patient Mode of arrival: ambulatory Limitations: no limitations History of Present Illness: 55-year-old female states she has had a sharp epigastric pain that started few hours ago. States that pain seems to radiate to her back along up to her chest. States she has some tenderness over her epigastric region. She denies any fevers denies any diarrhea. Has had a appendectomy and cholecystectomy. Associated symptoms: Reports abdominal pain Related Data Previous Rx's ?Medication ?Instructions ?Recorded clobetasol 0.05 % topical cream 1 applic topical BID 2 weeks #45 03/07/23 grams adalimumab-aqvh 40 mg/0.8 mL 40 mg (0.8 mL) SUBCUT Q14 D #1.6 mL 01/09/24 subcutaneous pen injector ([employer](CF) Pen) Held on 05/27/24. Instructions: Doctor's Order albuterol sulfate 90 mcg/actuation 2 puff inhalation Q 6H PRN 01/30/24 aerosol inhaler (ProAir HFA) shortness of breath or wh eezing #8.5 grams cetirizine 10 mg tablet (Zyrtec) 10 mg PO DAILY PRN al lergy 01/30/24 symptoms #30 tabs cyclobenzaprine 10 mg tablet 10 mg PO TID PRN muscle s pasm #30 05/27/24 tabs dulaglutide 1.5 mg/0.5 mL 1.5 mg (0.5 mL) SUBCUT .Once a 08/23/24 subcutaneous pen injector week #6 mL (Trulicity) budesonide-formoterol HFA 80 See Rx Instructions .Rout e 11/11/24 mcg-4.5 mcg/actuation aerosol .COMPLEX #11 grams inhaler (Breyna) omeprazole 40 mg capsule,delayed 40 mg PO DAILY #30 ca ps 03/25/25 release azithromycin 250 mg tablet See Rx Instructions PO .COM PLEX #6 05/12/25 tabs metformin 500 mg tablet See Rx Instructions .Route 0 05/12/25 .COMPLEX #180 tabs cyanocobalamin (vitamin B-12) 500 500 mcg PO DAILY #30 tabs 07/14/25 mcg tablet (Vitamin B-12) ezetimibe 10 mg tablet 10 mg PO DAILY #30 tabs 05/20 05/14 cefdinir 300 mg capsule 300 mg PO BID #20 caps 08/28 estradiol 0.01% (0.1 mg/gram) 1 appful vaginal DAILY # 42.5 grams 08/28/25 vaginal cream valsartan 80 mg tablet 80 mg PO DAILY #90 tabs 08/20 05/14 hydrocodone 5 mg-acetaminophen 325 1 tab PO Q6H PRN pa in #14 tabs 09/07/25 mg tablet ondansetron 4 mg disintegrating 4 mg PO Q6H PRN nausea and 09/07/25 tablet vomiting #14 tabs Allergies Allergy/AdvReac Type Severity Reaction Status Date / Time Penicillins Allergy Mild ALGY-Rash Verified 05/27/24 14:30 Review of Systems 2 Card: Reports: chest pain GI: Reports: abdominal pain PFSH ED 2 PFSH: Medical History Immunization counseling High risk medication use Diabetes Surgical History History of tonsillectomy H/O hernia repair History of cholecystectomy Hx of appendectomy History of hysterectomy Family History Mother CLL (chronic lymphocytic leukemia) Diabetes Brother Cancer CLL Other CAD (coronary artery disease) Family history of premature coronary artery disease Hyperlipidemia Hypertension Psoriasis Stroke Denies family history of Rheumatoid arthritis Lupus Lung disease Social History Smoking and tobacco/nicotine status: never used tobacco/nicotine Quit status (tobacco/nicotine): has quit using Former quit date comment: 7 pack year history Physical Exam 2 Const: COMMON NORMALS: no acute distress, patient oriented x3 and healthy appearing HENMT: COMMON NORMALS: normocephalic and atraumatic HEAD & SCALP: n ormocephalic and atraumatic Eye: COMMON NORMALS: conjunctivae normal CONJUNCTIVA: Yes conjunctivae normal Neck/C-Spine: COMMON NORMALS: full ROM and supple Chest: COMMONS NORMALS: normal inspection of the chest Resp: COMMON NORMALS: normal respiratory effort, No retractions, No use of accessory muscles and clear to auscultation bilaterally AUSCULTATION: clear to auscultation bilaterally Cardio: COMMON NORMALS: regular rate, regular rhythm and No murmurs present (Cardio) RATE: regular rate RHYTHM: regular rhythm GI: COMMON NORMALS: Normal to inspection, nondistended, normoactive bowel sounds present, Soft to palpation and no masses PALPATION: Yes Soft to palpation OTHER: epigastric tenderness Extremity: COMMON NORMALS: normal to inspection and full ROM Neuro: COMMON NORMALS: patient oriented x3, moves all extremities and no focal motor deficits Psych: COMMON NORMALS: mental status grossly normal, Normal thought process present and cooperative THOUGHT PROCESS: Normal thought process present Skin: COMMON NORMALS: no rashes or lesions noted and no wounds GENERAL SKIN EXAM: no rashes or lesions noted Course 2 Vital Signs: Vital signs: Vital Signs Temperature 97.7 F 09/07/25 17:28 Pulse Rate 86 09/07/25 18:30 Respiratory Rate 15 09/07/25 18:30 Blood Pressure 138/84 09/07/25 18:00 Pulse Oximetry 94 09/07/25 18:30 Oxygen Delivery Me thod Room Air 09/07/25 18:30 MDM - Chest Pain Medical Decision Making Patient presents for epigastric abdominal pain does radiate to her chest as well. No real chest pain no signs of ACS. Initial repeat troponins here are normal. Differential did include ACS along with pancreatitis, cholecystitis. Patient does have an elevated lipase consistent with pancreatitis. She has no signs of cholecystitis her EKG here is normal with normal sinus rhythm heart rate [address] elevation QRS 87 QTc 377 I did review her chest x-ray as well which showed no acute abnormalities. Patient is not a drinker she does take dulaglutide injections weekly informed her this could cause a pancreatitis and I recommend stopping. I did offer patient admission but she she feels much improved and wants to go home. Will prescribe her pain meds for home she is to do a liquid diet she is follow-up with PCP and return if worsening she understands and agrees to plan. Medical Records I reviewed the patient's medical records. Lab Data I reviewed the patient's lab results. 09/07/25 17:30 09/07/25 17:30 Radiology Impressions Chest X-Ray 09/07/25 17:26 IMPRESSION: 1. No acute cardiopulmonary findings. 2. Persistent elevation of right hemidiaphragm. Abdomen/Pelvis CT 09/07/25 17:31 IMPRESSION: 1. Bladder wall thickening. Correlate with urinalysis to exclude cystitis. 2. Few fluid-filled loops of small bowel, nonspecific finding but may be seen with enteritis of infectious or inflammatory etiology. No small bowel obstruction. 3. Hepatic steatosis. Status post cholecystectomy. 4. Pulmonary micronodules within partially included lung bases.For patients at low risk (minimal or absent history of smoking and of other known risk factors), no routine follow-up is indicated. For patients at high risk (history of smoking or of other known risk factors), consider optional CT Chest at 12 months. (Reference: Damaris) REFERENCES: Damaris Sanchez, et al. Guidelines for Management of Incidental Pulmonary Nodules Detected on CT Images: From the Fleischner Society 2017. Radiology. 2017;284(1):228-243. Laboratory Results WBC 8.80 10^3/uL (3.29-11.43) 09/07/25 17:30 RBC 4.81 10^6/uL (3.85-5.65) 09/07/25 17:30 Hgb 14.30 g/dL (11.27-16.99) 09/07/25 17:30 Hct 43.9 % (36-47) 09/07/25 17:30 MCV 91.3 fl (85-98) 09/07/25 17:30 MCH 29.7 pg (27-33) 09/07/25 17:30 MCHC 32.6 g/dL (30-55) 09/07/25 17:30 RDW 12.1 % (12.1-15.1) 09/07/25 17:30 Plt Count 292 10^3/cmm (157-399) 09/07/25 17:30 MPV 9.1 fL (7.4-10.4) 09/07/25 17:30 Neut % (Auto) 48.9 % 09/07/25 17:30 Lymph % (Auto) 36.9 % 09/07/25 17:30 [place] % (Auto) 7.8 % 09/07/25 17:30 Eos % (Auto) 5.5 % 09/07/25 17:30 Baso % (Auto) 0.6 % 09/07/25 17:30 Neut # (Auto) 4.30 10^3/uL (1.8-7.7) 09/07/25 17:30 Lymph # (Auto) 3.3 10^3/uL (0.8-4.8) 09/07/25 17:30 [place] # (Auto) 0.7 10^3/uL (0.2-0.9) 09/07/25 17:30 Eos # (Auto) 0.5 10^3/uL (0.0-0.8) 09/07/25 17:30 Baso # (Auto) 0.1 10^3/uL (0.0-0.1) 09/07/25 17:30 Nucleated RBC % (auto) 0 % 09/07/25 17: Nucleated RBCs # 0.0 /100WBC 09/07/25 17:30 Sodium 141 mmol/L (136-145) 09/07/25 17:30 Potassium 3.9 mmol/L (3.5-5.1) 09/07/25 17:30 Chloride 102 mmol/L (98-107) 09/07/25 17:30 Carbon Dioxide 23 mmol/L (22-29) 09/07/25 17:30 Anion Gap 19.9 (5-19) H 09/07/25 17:30 BUN 24 mg/dL (6-20) H 09/07/25 17:30 Creatinine 0.9 mg/dL (0.5-0.9) 09/07/25 17:30 GFR Calculation 65.0 mL/min (90-130) L 09/07/25 17:30 Glucose 98 mg/dL (65-115) 09/07/25 17:30 Calculated Osmolality 296 mOsm/kg (285-295) H 09/07/25 17:30 Calcium 9.7 mg/dL (8.5-10.5) 09/07/25 17:30 Total Bilirubin 0.8 mg/dL (0.15-1.2) 09/07/25 17:30 AST 124 U/L (0-32) H 09/07/25 17:30 ALT 74 U/L (0-33) H 09/07/25 17:30 Alkaline Phosphatase 125 U/L (35-105) H 09/07/25 17:30 Troponin T Baseline < 6 ng/L (0-10) 09/07/25 17:30 Troponin T 120 Minute < 6.0 ng/L (0-10) 09/07/25 19: Delta Troponin T 0 ABS# (0-10) 09/07/25 19:26 Total Protein 7.3 g/dL (6.6-8.7) 09/07/25 17:30 Albumin 4.6 g/dL (3.5-5.2) 09/07/25 17:30 Globulin 2.7 g/dL (1.3-4.6) 09/07/25 17:30 Triglycerides 134 mg/dL (0-150) 09/07/25 17:30 Cholesterol 223 mg/dL (0-200) H 09/07/25 17:30 LDL Cholesterol, Calc 136 mg/dL (50-129) H 09/07/25 17:30 HDL Cholesterol 60 mg/dL (60-100) 09/07/25 17:30 LDL/HDL Ratio 2.27 RATIO (0.00-3.22) 09/07/25 17:30 Cholesterol/HDL Ratio 3.72 mg/dL (0.0-4.40) 09/07/25 17:30 Lipase 636 U/L (13-60) H 09/07/25 17:30 All radiology interpretation(s) finalized by discharge EKG Data EKG 1: I personally reviewed and interpreted this EKG as follows: EKG interpretation date: 09/07/25 EKG interpretation time: 17:27 Interpretation: nsr hr [address] elevation qrs 87 qtc 377 Discharge Plan Discharge Patient Disposition: Home Clinical Impression: Pancreatitis Qualifiers: Chronicity: acute Pancreatitis type: unspecified pancreatitis type Acute pancreatitis complication: unspecified Qualified Code(s): K85.90 - Acute pancreatitis without necrosis or infection, unspecified Condition: Stable Prescriptions: New hydrocodone-acetaminophen 5-325 mg tablet 1 tab PO Q6H PRN (Reason: pain) Qty: 14 0RF ondansetron 4 mg tablet,disintegrating 4 mg PO Q6H PRN (Reason: nausea and vomiting) Qty: 14 0RF No Action clobetasol 0.05 % cream 1 applic topical BID 14 Days Qty: 45 1RF Yusimry(CF) Pen 40 mg/0.8 mL pen injector 40 mg SUBCUT Q14D Qty: 1.6 5RF cyclobenzaprine 10 mg tablet 10 mg PO TID PRN (Reason: muscle spasm) Qty: 30 1RF albuterol sulfate [ProAir HFA] 90 mcg/actuation HFA aerosol inhaler 2 puff inhalation Q6H PRN (Reason: shortness of breath or wheezing) Qty: 8.5 6RF cetirizine [Zyrtec] 10 mg tablet 10 mg PO DAILY PRN (Reason: allergy symptoms) Qty: 30 0RF metformin 500 mg tablet See Rx Instructions .ROUTE .COMPLEX Qty: 180 3RF Dose Instruction: Take 1 tablet by mouth twice daily Rx Instructions: Take 1/2 tablet by mouth twice daily azithromycin 250 mg tablet See Rx Instructions PO .COMPLEX Qty: 6 0RF Rx Instructions: For 250 mg dose pack: take 500 mg today (day 1), then 250 mg for 4 days (days 2-5) PO estradiol 0.01 % (0.1 mg/gram) cream 1 appful vaginal DAILY Qty: 42.5 1RF Rx Instructions: Apply daily for 21 days then off for 7 days then repeat cefdinir 300 mg capsule 300 mg PO BID Qty: 20 0RF Trulicity 1.5 mg/0.5 mL pen injector 1.5 mg SUBCUT .Once a week Qty: 6 6RF budesonide-formoterol [Breyna] 80-4.5 mcg/actuation HFA aerosol inhaler See Rx Instructions .ROUTE .COMPLEX Qty: 11 6RF Dose Instruction: INHALE 1 PUFF BY MOUTH TWICE DAILY Rx Instructions: INHALE 1 PUFF BY MOUTH TWICE DAILY omeprazole 40 mg capsule,delayed release(DR/EC) 40 mg PO DAILY Qty: 30 6RF cyanocobalamin (vitamin B-12) [Vitamin B-12] 500 mcg tablet 500 mcg PO DAILY Qty: 30 6RF ezetimibe 10 mg tablet 10 mg PO DAILY Qty: 30 6RF valsartan 80 mg tablet 80 mg PO DAILY Qty: 90 3RF Discharge Orders: Discharge ED (Routine); Ordered 09/07/25 Ordered By: Milka Boggs Referrals: Hermilo Bone MD [Primary Care Provider, Family Practice] - 4-7 days Discharge Diet: Full LIquid Discharge Activity: Resume usual activity Patient Instructions: Pancreatitis (ED), Clear Liquid Diet (ED) Print Language: Greek Coding Level of Care Code ED Neurology Nurse for Chg Fwd Heart Score HEART Score Components History: Slightly Suspicous EKG: Normal Age: 45-64 yrs Risk Factors: 1 or 2 Risk Factors Troponin: Baseline Trop <16 ng/L HEART Score RESULT HEART Score: 2
[2025-09-07 17:39] LABS: Hematocrit 43.9 % (36-47); Hemoglobin 14.30 g/dL (11.27-16.99); Mean Corpuscular HGB Conc 32.6 g/dL (30-55); Mean Corpuscular Hemoglobin 29.7 pg (27-33); Mean Corpuscular Volume 91.3 fl (85-98); Nucleated Red Blood Cells % 0 %; Platelet Count 292 10^3/cmm (157-399); Red Blood Count 4.81 10^6/uL (3.85-5.65); White Blood Count 8.80 10^3/uL (3.29-11.43)
[2025-09-07] MEDS: ondansetron 2 mg/ML SDV 2 mL 4 MG IVP (17:39)
[2025-09-07] MEDS: HYDROmorphone 0.5 MG/0.5 ML INJ 1 MG IVP (17:42)
[2025-09-07 17:49] VITALS: BP 138/84; PULSE 80; O2SAT 96
[2025-09-07 17:58] LABS: Troponin(5th) Baseline < 6 ng/L (0-10)
[2025-09-07] MEDS: iohexol 350 mg/mL 500 mL Btl (per mL) IV (17:58)
[2025-09-07 18:00] VITALS: BP 138/84; PULSE 93; RESP 14; O2SAT 96
[2025-09-07 18:00] LABS: Alanine Aminotransferase 74 U/L (0-33); Albumin Level 4.6 g/dL (3.5-5.2); Alkaline Phosphatase 125 U/L (35-105); Anion Gap 19.9 (5-19); Aspartate Amino Transferase 124 U/L (0-32); Blood Urea Nitrogen 24 mg/dL (6-20); Calcium 9.7 mg/dL (8.5-10.5); Carbon Dioxide 23 mmol/L (22-29); Chloride 102 mmol/L (98-107); Creatinine Clr Calc Pharmacy 85.2300; Globulin 2.7 g/dL (1.3-4.6); Glucose 98 mg/dL (65-115); Osmolality Calculated 296 mOsm/kg (285-295); Potassium 3.9 mmol/L (3.5-5.1); Sodium 141 mmol/L (136-145); Total Protein 7.3 g/dL (6.6-8.7)
[2025-09-07 18:09] LABS: Lipase 636 U/L (13-60)
--- NOTE | 2025-09-07 18:11 | PC.NURSE ---
Pt states the pain medication helped pain.
[2025-09-07 18:30] VITALS: PULSE 86; RESP 15; O2SAT 94
[2025-09-07 18:40] LABS: Cholesterol 223 mg/dL (0-200); HDL Cholesterol 60 mg/dL (60-100); Triglycerides 134 mg/dL (0-150)
[2025-09-07 19:47] LABS: Troponin 5 2HR < 6.0 ng/L (0-10); Troponin 5 2HR Delta 0 ABS# (0-10)
[2025-09-07] MEDS: morphine 4 mg/mL SDV 1 mL IVP (19:49)
[2025-09-07 20:00] VITALS: PULSE 93; O2SAT 100
[2025-09-07] MEDS: HYDROcodone-acetaminophen 5-325 mg Tablet 2 TAB PO (20:13)
[2025-09-07 20:27] VITALS: BP 101/54; PULSE 72; O2SAT 98
== END 2025-09-07 20:29 | disposition home or self-care (01) ==
PROVIDERS: Emergency Provider Emergency Medicine; PCP Family Medicine
DX: K85.90 Acute pancreatitis without necrosis or infection, unspecified (principal); Z79.84 Long term (current) use of oral hypoglycemic drugs; Z79.85 Long-term (current) use of injectable non-insulin antidiabetic drugs; Z87.891 Personal history of nicotine dependence; E11.9 Type 2 diabetes mellitus without complications
CPT/HCPCS: 36415; 71045; 74177; 80053; 80061; 83690; 84484; 85025; 93005; 96374; 96375; 99285; J1171; J2270; J2405; J7030; J9999

== ENCOUNTER → 2025-09-22 12:46 | Outpatient (BNVA) | payer OTHER, SELFPAY | PROVIDERS: PCP Family Medicine; Visit Provider Family Medicine | DX: K85.90 Acute pancreatitis without necrosis or infection, unspecified (principal); Z51.81 Encounter for therapeutic drug level monitoring | CPT/HCPCS: 80053; 83690; 85025 ==

== ENCOUNTER → 2025-09-23 13:35 | Outpatient (BNVA) | payer OTHER, SELFPAY | PROVIDERS: PCP Family Medicine; Visit Provider Family Medicine | DX: N39.0 Urinary tract infection, site not specified (principal) | CPT/HCPCS: 81003; 87086 ==